=== PATIENT | female | born 1930 | race Caucasian/White ===

== ENCOUNTER 2018-03-04 15:41 | Inpatient (IN) | payer OTHER, MEDICARE ==
--- NOTE | 2018-03-04 15:54 | PDOC ---
Rapid Medical Evaluation Medical Evaluation: 03/04/18 15:52 I have performed a brief in-person evaluation of this patient. The patient presents with a chief complaint of: weakness, dizzines, "hasn't been herself in past couple of days" per daughter, sent in by PCP Neisha for lab variances and dehydration Pertinent physical exam findings: bradycardic to 50s I have ordered the following: ekg, cardiac workup The patient will proceed to the ED for further evaluation. Discharge Disposition - Diagnosis Abnormal laboratory test - Referrals - Patient Instructions - Post Discharge Activity
[2018-03-04] MEDS ORDERED: ASPIRIN 81 MG CHEWABLE TABLETS PO ONE (15:55)
[2018-03-04] MEDS ORDERED: SODIUM CHLORIDE 0.9% 500 ML INFUS.BAG IV ONE (15:56)
[2018-03-04 16:24] LABS: BASO % 0.5 % (0-2.0); EOS % 2.4 % (0-4.5); HEMATOCRIT 40.4 % (32.4-45.2); HEMOGLOBIN 13.8 GM/dL (10.7-15.3); LYMPH % 20.5 % (8-40); MCH 30.7 pg (25.7-33.7); MCHC 34.1 g/dl (32.0-36.0); MEAN CELL VOLUME 89.9 fl (80-96); MEAN PLT VOLUME 10.4 fl (7.5-11.1); MONO % 6.2 % (3.8-10.2); NEUT % 70.4 % (42.8-82.8); PLATELET COUNT 266 K/MM3 (134-434); RDW 14.8 % (11.6-15.6); WHITE BLOOD COUNT 12.7 K/mm3 (4.0-10.0)
[2018-03-04] MEDS ORDERED: ASPIRIN 81 MG CHEWABLE TABLETS ONE (16:39)
[2018-03-04 16:42] LABS: INR 0.94 (0.82-1.09); PROTHROMBIN TIME (PATIENT) 10.6 SEC (9.98-11.88)
--- NOTE | 2018-03-04 17:40 | PDOC ---
History of Present Illness - General History Source: Patient Exam Limitations: No Limitations - History of Present Illness Initial Comments: 03/04/18 17:53 The patient is a 87 year old female with history of HL, HTN, depression, CAD, dementia, hypothyroidism sent to the ED by her PCP for concern for dehydration and abnormal lab values obtained yesterday. Per the patient's daughter at bedside, the patient has been "not herself" for several days and seemingly less energetic than usual. The patient reports she has been feeling lightheadedness. She denies chest pain or shortness of breath. She denies nausea, vomiting, or diaphoresis. She denies fever or chills. She denies headache, blurred vision, or numbness or tingling. She denies urinary complaints. Denies history of recurrent UTI's. PCP: Dr. Bess Driver <Jinny Gastelum - Last Filed: 03/04/18 18:36> <Ronni Mercedes - Last Filed: 03/04/18 20:18> - General Chief Complaint: Weakness Stated Complaint: LAB VARIANCE (PCP SENT) Time Seen by Provider: 03/04/18 16:26 Past History <Jinny Gastelum - Last Filed: 03/04/18 18:36> - Past Medical History Anemia: No Asthma: No Cardiac Disorders: No CVA: No COPD: No Diabetes: No HTN: Yes Hypercholesterolemia: Yes Kidney Stones: No Liver Disease: No Psychiatric Problems: No Seizures: No Thyroid Disease: No Lung CA: No - Immunization History Immunization Up to Date: Yes - Suicide/Smoking/Psychosocial Hx Smoking History: Never smoked Have you smoked in the past 12 months: No Information on smoking cessation initiated: No Hx Alcohol Use: No Drug/Substance Use Hx: No Substance Use Type: None <Ronni Mercedes - Last Filed: 03/04/18 20:18> - Past Medical History Allergies/Adverse Reactions: Allergies Allergy/AdvReac Type Severity Reaction Status Date / Time No Known Allergies Allergy Verified 03/04/18 15:58 Home Medications: Ambulatory Orders Unobtainable [Unobtainable] 03/04/18 Review of Systems - Review of Systems Able to Perform ROS?: Yes Comments:: 03/04/18 18:37 GENERAL/CONSTITUTIONAL: +Weakness. No fever or chills. HEAD, EYES, EARS, NOSE AND THROAT: No change in vision. No ear pain or discharge. No sore throat. GASTROINTESTINAL: No nausea, vomiting, diarrhea or constipation. GENITOURINARY: No dysuria, frequency, or change in urination. CARDIOVASCULAR: +lightheadedness. No chest pain or shortness of breath. RESPIRATORY: No cough, wheezing, or hemoptysis. MUSCULOSKELETAL: No joint or muscle swelling or pain. No neck or back pain. SKIN: No rash NEUROLOGIC: No headache, loss of consciousness, or change in strength/sensation. ENDOCRINE: No increased thirst. No abnormal weight change. HEMATOLOGIC/LYMPHATIC: No anemia, easy bleeding, or history of blood clots. ALLERGIC/IMMUNOLOGIC: No hives or skin allergy. <Jinny Gastelum - Last Filed: 03/04/18 18:36> *Physical Exam - Vital Signs Last Vital Signs Temp Pulse Resp BP Pulse Ox 98.2 F 49 L 16 150/89 100 03/04/18 15:54 03/04/18 15:54 03/04/18 15:54 03/04/18 15:54 03/04/18 15:54 - Physical Exam Comments: 03/04/18 18:37 GENERAL: Awake, alert, and fully oriented, in no acute distress HEAD: No signs of trauma EYES: PERRLA, EOMI, sclera anicteric, conjunctiva clear ENT: Auricles normal inspection, hearing grossly normal, nares patent, oropharynx clear without exudates. Moist mucosa NECK: Normal ROM, supple, no lymphadenopathy, JVD, or masses LUNGS: Breath sounds equal, clear to auscultation bilaterally. No wheezes, and no crackles HEART: Regular rate and rhythm, normal S1 and S2, no murmurs, rubs or gallops ABDOMEN: Soft, nontender, normoactive bowel sounds. No guarding, no rebound. No masses EXTREMITIES: Normal range of motion, no edema. No clubbing or cyanosis. No cords, erythema, or tenderness BACK: No midline spinal tenderness in cervical/thoracic/lumbar region NEUROLOGICAL: Normal speech, cranial nerves intact, negative pronator drift, 5/ 5 strength in all 4 extremities, normal sensation to light touch in all 4 extremities, normal cerebellar exam, normal reflexes and tone. Gait deferred. SKIN: Warm, Dry, normal turgor, no rashes or lesions noted. <Jinny Gastelum - Last Filed: 03/04/18 18:36> - Vital Signs Last Vital Signs Temp Pulse Resp BP Pulse Ox 98.2 F 49 L 16 150/89 100 03/04/18 15:54 03/04/18 15:54 03/04/18 15:54 03/04/18 15:54 03/04/18 15:54 <Ronni Mercedes - Last Filed: 03/04/18 20:18> ED Treatment Course - LABORATORY CBC & Chemistry Diagram: 03/04/18 16:05 03/04/18 16:05 - ADDITIONAL ORDERS Additional order review: Laboratory Results 03/04/18 03/04/18 16:05 16:05 PT with INR 10.60 INR 0.94 Sodium Cancelled Potassium Cancelled Chloride Cancelled Carbon Dioxide Cancelled Anion Gap Cancelled BUN Cancelled Creatinine Cancelled Creat Clearance w eGFR Cancelled Random Glucose Cancelled Calcium Cancelled Magnesium Cancelled Total Bilirubin Cancelled AST Cancelled ALT Cancelled Alkaline Phosphatase Cancelled Creatine Kinase Cancelled Troponin I Cancelled Total Protein Cancelled Albumin Cancelled 03/04/18 16:05 RBC 4.50 MCV 89.9 MCHC 34.1 RDW 14.8 MPV 10.4 Neutrophils % 70.4 Lymphocytes % 20.5 Monocytes % 6.2 Eosinophils % 2.4 Basophils % 0.5 - Medications Given in the ED: ED Medications Discontinued Medications Generic Name Dose Route Start Last Admin Trade Name Freq PRN Reason Stop Dose Admin Aspirin 162 mg 03/04/18 15:55 03/04/18 16:44 Asa - PO 03/04/18 15:56 162 mg ONCE ONE Administration Sodium Chloride 1,000 ml 03/04/18 15:56 03/04/18 16:44 Normal Saline - IV 03/04/18 15:57 1,000 ml ONCE ONE Administration <Jinny Gastelum - Last Filed: 03/04/18 18:36> - LABORATORY CBC & Chemistry Diagram: 03/04/18 16:05 03/04/18 18:10 - ADDITIONAL ORDERS Additional order review: Laboratory Results 03/04/18 16:05 PT with INR 10.60 INR 0.94 03/04/18 16:05 RBC 4.50 MCV 89.9 MCHC 34.1 RDW 14.8 MPV 10.4 Neutrophils % 70.4 Lymphocytes % 20.5 Monocytes % 6.2 Eosinophils % 2.4 Basophils % 0.5 - RADIOLOGY Radiology Studies Ordered: Category Date Time Status HEAD CT WITHOUT CONTRAST [CT] Stat CT Scan 03/04/18 17:34 Ordered - Medications Given in the ED: ED Medications Discontinued Medications Generic Name Dose Route Start Last Admin Trade Name Fredi PRN Reason Stop Dose Admin Aspirin 162 mg 03/04/18 15:55 03/04/18 16:44 Asa - PO 03/04/18 15:56 162 mg ONCE ONE Administration Sodium Chloride 1,000 ml 03/04/18 15:56 03/04/18 16:44 Normal Saline - IV 03/04/18 15:57 1,000 ml ONCE ONE Administration <Ronni Mercedes - Last Filed: 03/04/18 20:18> Medical Decision Making - Medical Decision Making 03/04/18 17:38 87-year-old female with multiple medical problems presents emergency Department with generalized weakness, lightheadedness, and confusion. Vitals remarkable for bradycardia to the upper 40s and low 50s, but with normal blood pressure. Exam is unremarkable. Differential includes but not limited to dehydration versus symptomatic bradycardia/SSS (pt NOT on BB) metabolic disarray versus cardiac ischemia. WIll order labs, CXR, UA. Given lightheadness and change in mental status, will also order CTH. Likely obs admit 03/04/18 18:[address] Driver who was concerned about pt's mental status as she normally takes care of herself, gets dressed etc and she hadn't changed her clothes since she was last seen [address] Driver also notes pt was newly bradycardic today and was concerned this may be the cause of her change in mental status. Dr. Driver would like her admitted and has alerted Dr. Michelle (cards) and Dr. Wise for admission. Remainder of labs pending (CMP hemolyzed). 03/04/18 19:07 Pt signed out to Dr. Lopez for further f/u on diagnostics and admission. <Ronni Mercedes - Last Filed: 03/04/18 20:18> *DC/Admit/Observation/Transfer - Attestations Scribe Attestion: 03/04/18 18:37 Documentation prepared by Jinny Gastelum, acting as medical cost consultant for Ronni Mercedes MD. <Jinny Gastelum - Last Filed: 03/04/18 18:36> <Ronni Mercedes - Last Filed: 03/04/18 20:18> Diagnosis at time of Disposition: Abnormal laboratory test - Referrals Referrals: Bess Driver [Primary Care Provider] - - Patient Instructions - Post Discharge Activity
[2018-03-04 19:34] LABS: ALBUMIN 3.5 g/dl (3.4-5.0); ALK PHOS 68 U/L (45-117); ANION GAP 5 (8-16); BILIRUBIN,TOTAL 0.3 mg/dL (0.2-1.0); BLOOD UREA NITROGEN 24 mg/dL (7-18); CALCIUM 9.2 mg/dL (8.5-10.1); CHLORIDE 103 mmol/L (98-107); CO2 29 mmol/L (21-32); GLUCOSE,RANDOM 116 mg/dL (74-106); SGPT/ALT 32 U/L (12-78); SODIUM 137 mmol/L (136-145); TOT PROT 7.2 g/dl (6.4-8.2)
[2018-03-04 19:45] LABS: SGOT/AST 23 U/L (15-37)
[2018-03-04 20:14] LABS: MAGNESIUM 2.2 mg/dL (1.8-2.4)
--- NOTE | 2018-03-04 20:45 | PDOC ---
*Physical Exam - Vital Signs Last Vital Signs Temp Pulse Resp BP Pulse Ox 98.2 F 49 L 16 150/89 100 03/04/18 15:54 03/04/18 15:54 03/04/18 15:54 03/04/18 15:54 03/04/18 15:54 ED Treatment Course - LABORATORY CBC & Chemistry Diagram: 03/04/18 16:05 03/04/18 18:10 - ADDITIONAL ORDERS Additional order review: Laboratory Results 03/04/18 03/04/18 03/04/18 18:28 18:10 18:10 PT with INR INR Sodium 137 Potassium 5.0 Chloride 103 Carbon Dioxide 29 Anion Gap 5 L BUN 24 H Creatinine 1.0 Creat Clearance w eGFR 52.45 Random Glucose 116 H Calcium 9.2 Magnesium 2.2 Total Bilirubin 0.3 AST 23 ALT 32 Alkaline Phosphatase 68 Creatine Kinase Troponin I < 0.02 Total Protein 7.2 Albumin 3.5 TSH 5.08 H 03/04/18 03/04/18 16:05 16:05 PT with INR 10.60 INR 0.94 Sodium Cancelled Potassium Cancelled Chloride Cancelled Carbon Dioxide Cancelled Anion Gap Cancelled BUN Cancelled Creatinine Cancelled Creat Clearance w eGFR Cancelled Random Glucose Cancelled Calcium Cancelled Magnesium Cancelled Total Bilirubin Cancelled AST Cancelled ALT Cancelled Alkaline Phosphatase Cancelled Creatine Kinase Cancelled Troponin I Cancelled Total Protein Cancelled Albumin Cancelled TSH 03/04/18 16:05 RBC 4.50 MCV 89.9 MCHC 34.1 RDW 14.8 MPV 10.4 Neutrophils % 70.4 Lymphocytes % 20.5 Monocytes % 6.2 Eosinophils % 2.4 Basophils % 0.5 - Medications Given in the ED: ED Medications Discontinued Medications Generic Name Dose Route Start Last Admin Trade Name Freq PRN Reason Stop Dose Admin Aspirin 162 mg 03/04/18 15:55 03/04/18 16:44 Asa - PO 03/04/18 15:56 162 mg ONCE ONE Administration Sodium Chloride 1,000 ml 03/04/18 15:56 03/04/18 16:44 Normal Saline - IV 03/04/18 15:57 1,000 ml ONCE ONE Administration *DC/Admit/Observation/Transfer Diagnosis at time of Disposition: Abnormal laboratory test, Bradycardia - Discharge Dispostion Condition at time of disposition: Stable Admit: Yes - Referrals Referrals: Bess Driver [Primary Care Provider] - - Patient Instructions - Post Discharge Activity
--- NOTE | 2018-03-04 23:26 | HP ---
Admitting History and Physical - Admission History of Present Illness: The patient is a 87 year old female with history of HL, HTN, depression, CAD, dementia, hypothyroidism sent to the ED by her PCP for concern for dehydration, altered behavior ( has not changed her attire in 2 days-she usually cares for herself) and abnormal lab values obtained yesterday. Per the patient's daughter at bedside, the patient has been "not herself" for several days and seemingly less energetic than usual. The patient reports she has been feeling lightheadedness. She denies chest pain or shortness of breath. She denies nausea , vomiting, or diaphoresis. She denies fever or chills. She denies headache, blurred vision, or numbness or tingling. She denies urinary complaints. Denies history of recurrent UTI's. History Source: Patient, Medical Record, Caregiver Limitations to Obtaining History: Dementia - Past Medical History LITIGATION PARALEGAL: Yes: Dementia (moderate) Cardiovascular: Yes: HTN, Hyperlipdemia Musculoskeletal: Yes: Osteoarthritis - Smoking History Smoking history: Never smoked Have you smoked in the past 12 months: No - Alcohol/Substance Use Hx Alcohol Use: No History of Substance Use: reports: None - Social History Usual Living Arrangement: Yes: Assisted Living ADL: Support Services History of Recent Travel: No Home Medications - Allergies Allergies/Adverse Reactions: Allergies Allergy/AdvReac Type Severity Reaction Status Date / Time No Known Allergies Allergy Verified 03/04/18 15:58 - Home Medications Home Medications: Ambulatory Orders Acetaminophen [Tylenol .Extra-Strength -] 500 mg PO BID 03/04/18 Aspirin 81 mg PO DAILY 03/04/18 Atorvastatin Ca [Lipitor] 10 mg PO HS 03/04/18 Calcium Carb, Citrate/Vit D3 [Citracal + D ER Tablet] 2 each PO DAILY 03/04/18 Cholecalciferol (Vitamin D3) [Vitamin D3] 2,000 unit PO DAILY 03/04/18 Levothyroxine [Synthroid -] 100 mcg PO DAILY 03/04/18 Losartan Potassium [Cozaar] 100 mg PO DAILY 03/04/18 Memantine HCl [Namenda -] 10 mg PO BID 03/04/18 Multivitamin [Multiple Vitamins] 1 each PO DAILY 03/04/18 Paroxetine HCl [Paxil] 10 mg PO DAILY 03/04/18 Vit C/E/Zn/Coppr/Lutein/Zeaxan [Preservision Areds 2 Softgel] 1 each PO DAILY Docusate Sodium [Colace -] 100 mg PO BID capsule 03/05/18 Physical Examination Vital Signs: Vital Signs Temperature 98.2 F 03/04/18 15:54 Pulse Rate 54 L 03/04/18 21:52 Respiratory Rate 18 03/04/18 21:52 Blood Pressure 140/77 03/04/18 21:52 O2 Sat by Pulse Oximetry (%) 100 03/04/18 21:52 Constitutional: Yes: Well Nourished, No Distress, Calm Eyes: Yes: Conjunctiva Clear, EOM Intact HENT: Yes: Atraumatic, Normocephalic Neck: Yes: Supple, Trachea Midline Cardiovascular: Yes: Regular Rate and Rhythm, Bradycardia Respiratory: Yes: CTA Bilaterally Gastrointestinal: Yes: Normal Bowel Sounds, Soft ...Rectal Exam: Yes: Deferred Renal/: Yes: WNL Breast(s): Yes: WNL Musculoskeletal: Yes: WNL Extremities: Yes: WNL Edema: No Peripheral Pulses WNL: Yes Integumentary: Yes: WNL Neurological: Yes: WNL, Pre-Existing Deficit Psychiatric: Yes: Alert Labs: CBC, BMP 03/04/18 16:05 03/04/18 18:10 Problem List - Problems (1) HLD (hyperlipidemia) Code(s): E78.5 - HYPERLIPIDEMIA, UNSPECIFIED (2) HTN (hypertension) Code(s): I10 - ESSENTIAL (PRIMARY) HYPERTENSION (3) Alteration of behavior in patient older than 64 years of age Code(s): F91.8 - OTHER CONDUCT DISORDERS (4) Abnormal laboratory test Code(s): R89.9 - UNSP ABNORMAL FINDING IN SPECIMENS FROM OTH ORG/TISS (5) Bradycardia Code(s): R00.1 - BRADYCARDIA, UNSPECIFIED (6) Hypothyroid Code(s): E03.9 - HYPOTHYROIDISM, UNSPECIFIED Assessment/Plan EKG: sr 50s, 1st avb, nl qtc, no ishcemic changes CXR: no chf a/p: 87 f hx hld, htn, dementia, hypothyroid here with ams. bradycardia: -telemetry -Cardio consult -echo, HLD: -cont statin HTN: -cont arb hypothyroid: -cont synthroid
[2018-03-04 23:33] LABS: URINE APPEARANCE CLEAR; URINE BILIRUBIN NEGATIVE (<2.0 mg/dL); URINE COLOR LTYELLOW; URINE GLUCOSE (UA) NEGATIVE (NEGATIVE); URINE KETONE NEGATIVE (NEGATIVE); URINE LEUK ESTERASE NEGATIVE (NEGATIVE); URINE NITRITE NEGATIVE (NEGATIVE); URINE PROTEIN NEGATIVE (NEGATIVE); URINE UROBILINOGEN NEGATIVE mg/dL (0.2-1.0)
[2018-03-05 00:04] VITALS: BMI 39.4
[2018-03-05 06:39] LABS: HEMATOCRIT 38.1 % (32.4-45.2); HEMOGLOBIN 12.9 GM/dL (10.7-15.3); MCH 30.6 pg (25.7-33.7); MCHC 33.8 g/dl (32.0-36.0); MEAN CELL VOLUME 90.7 fl (80-96); MEAN PLT VOLUME 10.4 fl (7.5-11.1); PLATELET COUNT 216 K/MM3 (134-434); WHITE BLOOD COUNT 12.8 K/mm3 (4.0-10.0)
[2018-03-05] MEDS ORDERED: LEVOTHYROXINE NA 100 MCG TABLET (FP) PO SCH (07:00)
[2018-03-05 07:32] LABS: ANION GAP 8 (8-16); BILIRUBIN,TOTAL 0.6 mg/dL (0.2-1.0); BLOOD UREA NITROGEN 21 mg/dL (7-18); CALCIUM 8.5 mg/dL (8.5-10.1); CHLORIDE 106 mmol/L (98-107); CO2 26 mmol/L (21-32); GLUCOSE,RANDOM 123 mg/dL (74-106); MAGNESIUM 2.1 mg/dL (1.8-2.4); POTASSIUM 4.5 mmol/L (3.5-5.1); SGOT/AST 16 U/L (15-37); SGPT/ALT 27 U/L (12-78); SODIUM 140 mmol/L (136-145); TOT PROT 6.2 g/dl (6.4-8.2)
[2018-03-05 07:36] LABS: ALK PHOS 58 U/L (45-117)
--- NOTE | 2018-03-05 09:37 | EKG ---
Test Reason : Blood Pressure : / mmHG Vent. Rate : 058 BPM Atrial Rate : 058 BPM P-R Int : 236 ms QRS Dur : 086 ms QT Int : 440 ms P-R-T Axes : 045 -12 061 degrees QTc Int : 431 ms SINUS BRADYCARDIA WITH 1ST DEGREE A-V BLOCK OTHERWISE NORMAL ECG WHEN COMPARED WITH ECG OF 04-MAR-2018 16:12, CRITERIA FOR SEPTAL INFARCT ARE NO LONGER PRESENT Confirmed by LAKESHA BURNS, MUKESH ([id number]) on 03/05/2018 9:37:24 AM Referred By: BEV JARAMILLO DR Confirmed By:MUKESH CROWDER MD
--- NOTE | 2018-03-05 09:37 | EKG ---
Test Reason : Blood Pressure : / mmHG Vent. Rate : 051 BPM Atrial Rate : 051 BPM P-R Int : 232 ms QRS Dur : 088 ms QT Int : 440 ms P-R-T Axes : 062 -18 047 degrees QTc Int : 405 ms POOR DATA QUALITY, INTERPRETATION MAY BE ADVERSELY AFFECTED SINUS BRADYCARDIA WITH 1ST DEGREE A-V BLOCK MINIMAL VOLTAGE CRITERIA FOR LVH, MAY BE NORMAL VARIANT SEPTAL INFARCT , AGE UNDETERMINED ABNORMAL ECG NO PREVIOUS ECGS AVAILABLE Confirmed by MUKESH CROWDER MD ([id number]) on 03/05/2018 9:37:05 AM Referred By: Confirmed By:MUKESH CROWDER MD
[2018-03-05] MEDS ORDERED: LOSARTAN POTASSIUM 50 MG TABLET (FP) PO SCH (10:00)
[2018-03-05] MEDS ORDERED: MULTIVITAMINS (DAILY MVI) TABLET (FP) PO SCH (10:00)
[2018-03-05] MEDS ORDERED: MEMANTINE HCL 10 MG TABLET (FP) PO SCH (10:00)
[2018-03-05] MEDS ORDERED: ACETAMINOPHEN 500 MG TABLET (FP) PO SCH (10:00)
[2018-03-05] MEDS ORDERED: CALCIUM (OYSTER SHELL) 500 MG TABLET (FP) PO SCH (10:00)
[2018-03-05] MEDS ORDERED: PARoxetine HCL 10 MG TABLET (FP) PO SCH (10:00)
[2018-03-05] MEDS ORDERED: DOCUSATE SODIUM 100 MG CAPSULE (FP) PO SCH (10:00)
[2018-03-05] MEDS ORDERED: CHOLECALCIFEROL (VITAMIN D3) 1,000 UNIT TABLET (FP) PO SCH (10:00)
--- NOTE | 2018-03-05 10:37 | CON.CARD ---
Cardiology Consult (text) - Consultation Consultation Note: cc: ams hpi: 87 f hx hld, htn, dementia, hypothyroid here with ams. Pt does not recall any specific sxs, says she is feeling well. No cp, sob, palps, dizzy, loc, pnd, orthopnea, le edema. In ER found to have SB 40s, nl bp. pmh: per hpi psh: nc social: no tob fam: no premature cad ros: per hpi; no nvd, fever, cough, albright, vision changes, hematuria, dysuria, gib meds: Home Medications Medication Instructions Recorded Acetaminophen [Tylenol -] 500 mg PO BID 03/04/18 Aspirin 81 mg PO DAILY 03/04/18 Atorvastatin Ca [Lipitor] 10 mg PO HS 03/04/18 Calcium Carb, Citrate/Vit D3 2 each PO DAILY 03/04/18 [Citracal + D ER Tablet] Cholecalciferol (Vitamin D3) 2,000 unit PO DAILY 03/04/18 [Vitamin D3] Levothyroxine [Synthroid -] 100 mcg PO DAILY 03/04/18 Losartan Potassium [Cozaar] 100 mg PO DAILY 03/04/18 Memantine HCl [Namenda -] 10 mg PO BID 03/04/18 Multivitamin [Multiple Vitamins] 1 each PO DAILY 03/04/18 Paroxetine HCl [Paxil] 10 mg PO DAILY 03/04/18 Vit C/E/Zn/Coppr/Lutein/Zeaxan 1 each PO DAILY 03/04/18 [Preservision Areds 2 Softgel] pe: Vital Signs Period Temp Pulse Resp BP Sys/[place] Pulse Ox Last 24 Hr 97.6 F-98.2 F 48-54 16-18 126-150/43-89 96-100 nad no jvd rrr s1s2 no mrg cta bl nl eff aao3 no le e/c/c abd nt nd pos bs no jaundice diaphoresis pos dp pt no carotid bruits Laboratory Last Values WBC 12.8 K/mm3 (4.0-10.0) H 03/05/18 05:35 RBC 4.20 M/mm3 (3.60-5.2) 03/05/18 05:35 Hgb 12.9 GM/dL (10.7-15.3) 03/05/18 05:35 Hct 38.1 % (32.4-45.2) 03/05/18 05:35 MCV 90.7 fl (80-96) 03/05/18 05:35 MCH 30.6 pg (25.7-33.7) 03/05/18 05:35 MCHC 33.8 g/dl (32.0-36.0) 03/05/18 05:35 RDW 15.0 % (11.6-15.6) 03/05/18 05:35 Plt Count 216 K/MM3 (134-434) 03/05/18 05:35 MPV 10.4 fl (7.5-11.1) 03/05/18 05:35 Neutrophils % 70.4 % (42.8-82.8) 03/04/18 16:05 Lymphocytes % 20.5 % (8-40) 03/04/18 16:05 Monocytes % 6.2 % (3.8-10.2) 03/04/18 16:05 Eosinophils % 2.4 % (0-4.5) 03/04/18 16:05 Basophils % 0.5 % (0-2.0) 03/04/18 16:05 PT with INR 10.60 SEC (9.98-11.88) 03/04/18 16:05 INR 0.94 (0.82-1.09) 03/04/18 16:05 Sodium 140 mmol/L (136-145) 03/05/18 05:35 Potassium 4.5 mmol/L (3.5-5.1) 03/05/18 05:35 Chloride 106 mmol/L (98-107) 03/05/18 05:35 Carbon Dioxide 26 mmol/L (21-32) 03/05/18 05:35 Anion Gap 8 (8-16) 03/05/18 05:35 BUN 21 mg/dL (7-18) H 03/05/18 05:35 Creatinine 1.0 mg/dL (0.55-1.02) 03/05/18 05:35 Creat Clearance w eGFR 52.45 (>60) 03/05/18 05:35 Random Glucose 123 mg/dL (74-106) H 03/05/18 05:35 Calcium 8.5 mg/dL (8.5-10.1) 03/05/18 05:35 Magnesium 2.1 mg/dL (1.8-2.4) 03/05/18 05:35 Total Bilirubin 0.6 mg/dL (0.2-1.0) D 03/05/18 05:35 AST 16 U/L (15-37) 03/05/18 05:35 ALT 27 U/L (12-78) 03/05/18 05:35 Alkaline Phosphatase 58 U/L (45-117) 03/05/18 05:35 Creatine Kinase 42 IU/L (26-192) 03/05/18 05:35 Troponin I < 0.02 ng/ml (0.00-0.05) 03/05/18 05:35 Total Protein 6.2 g/dl (6.4-8.2) L 03/05/18 05:35 Albumin 3.0 g/dl (3.4-5.0) L 03/05/18 05:35 TSH 5.08 uIU/ml (0.358-3.74) H 03/04/18 18:10 Urine Color Ltyellow 03/04/18 23:20 Urine Appearance Clear 03/04/18 23:20 Urine pH 5.0 (5.0-8.0) 03/04/18 23:20 Ur Specific [place] 1.017 (1.001-1.035) 03/04/18 23:20 Urine Protein Negative (NEGATIVE) 03/04/18 23:20 Urine Glucose (UA) Negative (NEGATIVE) 03/04/18 23:20 Urine Ketones Negative (NEGATIVE) 03/04/18 23:20 Urine Blood Negative (NEGATIVE) 03/04/18 23:20 Urine Nitrite Negative (NEGATIVE) 03/04/18 23:20 Urine Bilirubin Negative (<2.0 mg/dL) 03/04/18 23:20 Urine Urobilinogen Negative mg/dL (0.2-1.0) 03/04/18 23:20 Ur Leukocyte Esterase Negative (NEGATIVE) 03/04/18 23:20 tele: sb 40s when sleeping, 80s currently awake, no pathologic bradycardia ecg: sr 50s, 1st avb, nl qtc, no ishcemic changes cxr: no chf a/p: 87 f hx hld, htn, dementia, hypothyroid here with ams. bradycardia: -no pathologic bradycardia detected here -pt with sinus summer at rest/sleep, goes up to 80s when awake in chair -check echo, otherwise no specific tx needed for her sinus summer hld: -cont statin htn: -cont arb hypothyroid: -cont synthroid
[2018-03-05 14:33] VITALS: BP 137/63; PULSE 65; TEMP 97.9
--- NOTE | 2018-03-05 15:16 | PN ---
Progress Note (short form) - Note Progress Note: PT found walking from bathroom. Nurse assisting. Pt states I feel fine and would like to go home today. Vital Signs Period Temp Pulse Resp BP Sys/[place] Pulse Ox Last 24 Hr 97.6 F-98.2 F 48-65 16-18 126-153/43-89 94-100 CBC, BMP 03/05/18 05:35 03/05/18 05:35 HEENT-Normocephalic Neck-supple Lungs- CTAB Heart- S1/S2 Abd- Soft, NT Ext- No LE edema Active Medications Acetaminophen (Tylenol -) 500 mg PO BID [facility] Last Admin: 03/05/18 09:23 Dose: 500 mg Atorvastatin Calcium (Lipitor -) 10 mg PO HS [facility] Calcium Carbonate (Os-Harry 500mg -) 500 mg PO DAILY [facility] Last Admin: 03/05/18 09:24 Dose: 500 mg Cholecalciferol (Vitamin D3 -) 2,000 unit PO DAILY [facility] Last Admin: 03/05/18 09:23 Dose: 2,000 unit Docusate Sodium (Colace -) 100 mg PO BID [facility] Last Admin: 03/05/18 09:23 Dose: 100 mg Levothyroxine Sodium (Synthroid -) 100 mcg PO DAILY@0700 [facility] Last Admin: 03/05/18 06:20 Dose: 100 mcg Lorazepam (Ativan Injection -) 0.5 mg IVPUSH BID PRN PRN Reason: Agitation /anxiety Losartan Potassium (Cozaar -) 100 mg PO DAILY [facility] Last Admin: 03/05/18 09:23 Dose: 100 mg Memantine (Namenda -) 10 mg PO BID [facility] Last Admin: 03/05/18 09:23 Dose: 10 mg Multivitamins/Minerals/Vitamin C (Tab-A-Vit -) 1 tab PO DAILY [facility] Last Admin: 03/05/18 09:23 Dose: 1 tab Paroxetine HCl (Paxil -) 10 mg PO DAILY [facility] Last Admin: 03/05/18 09:24 Dose: 10 mg # Bradycardia Cardio consult appreciated 40s-50s at rest HR increases after activity Discussed findings with dtr / PCP/ Attending #Dementia Continue Namenda A & O x 1 #Hypothyroidism TSH elevated Continue Levothyroxine #HTN Continue ARB #HLD Continue Statin
--- NOTE | 2018-03-05 18:26 | DS ---
Physical Examination Vital Signs: Vital Signs Temperature 97.9 F 03/05/18 14:32 Pulse Rate 65 03/05/18 14:32 Respiratory Rate 16 03/05/18 14:32 Blood Pressure 137/63 03/05/18 14:32 O2 Sat by Pulse Oximetry (%) 94 L 03/05/18 09:00 Findings/Remarks: The patient is a 87 year old female with history of HL, HTN, depression, CAD, dementia, hypothyroidism sent to the ED by her PCP for concern for dehydration and abnormal lab values obtained yesterday. Per the patient's daughter at bedside, the patient has been "not herself" for several days and seemingly less energetic than usual. The patient reports she has been feeling lightheadedness. She denies chest pain or shortness of breath. She denies nausea, vomiting, or diaphoresis. She denies fever or chills. She denies headache, blurred vision, or numbness or tingling. She denies urinary complaints. Denies history of recurrent UTI's. tele: sb 40s when sleeping, 80s currently awake, no pathologic bradycardia ecg: sr 50s, 1st avb, nl qtc, no ishcemic changes cxr: no chf a/p: 87 f hx hld, htn, dementia, hypothyroid here with ams. bradycardia: -no pathologic bradycardia detected here -pt with sinus summer at rest/sleep, goes up to 80s when awake in chair -check echo, otherwise no specific tx needed for her sinus summer hld: -cont statin htn: -cont arb hypothyroid: -cont synthroid Constitutional: Yes: No Distress, Calm Eyes: Yes: Conjunctiva Clear, EOM Intact HENT: Yes: Atraumatic, Normocephalic Neck: Yes: Supple, Trachea Midline Cardiovascular: Yes: Regular Rate and Rhythm Respiratory: Yes: Regular, CTA Bilaterally Gastrointestinal: Yes: Normal Bowel Sounds, Soft ...Rectal Exam: Yes: Deferred Renal/: Yes: WNL Breast(s): Yes: WNL Musculoskeletal: Yes: WNL Extremities: Yes: WNL Edema: No Peripheral Pulses WNL: Yes Integumentary: Yes: WNL Neurological: Yes: WNL, Pre-Existing Deficit Psychiatric: Yes: Other (dementia) Labs: CBC, BMP 03/05/18 05:35 03/05/18 05:35 Discharge Summary Reason For Visit: LAB VARIANCE (PCP SENT) Current Active Problems Abnormal laboratory test (Acute) Bradycardia (Acute) Condition: Stable - Instructions Referrals: Bess Driver [Primary Care Provider] - Disposition: HOME - Home Medications Comprehensive Discharge Medication List: Ambulatory Orders Acetaminophen [Tylenol .Extra-Strength -] 500 mg PO BID 03/04/18 Aspirin 81 mg PO DAILY 03/04/18 Atorvastatin Ca [Lipitor] 10 mg PO HS 03/04/18 Calcium Carb, Citrate/Vit D3 [Citracal + D ER Tablet] 2 each PO DAILY 03/04/18 Cholecalciferol (Vitamin D3) [Vitamin D3] 2,000 unit PO DAILY 03/04/18 Levothyroxine [Synthroid -] 100 mcg PO DAILY 03/04/18 Losartan Potassium [Cozaar] 100 mg PO DAILY 03/04/18 Memantine HCl [Namenda -] 10 mg PO BID 03/04/18 Multivitamin [Multiple Vitamins] 1 each PO DAILY 03/04/18 Paroxetine HCl [Paxil] 10 mg PO DAILY 03/04/18 Vit C/E/Zn/Coppr/Lutein/Zeaxan [Preservision Areds 2 Softgel] 1 each PO DAILY Docusate Sodium [Colace -] 100 mg PO BID capsule 03/05/18
[2018-03-05] MEDS ORDERED: ATORVASTATIN CA 10 MG TABLET (FP) PO SCH (22:00)
== END 2018-03-05 18:37 | disposition home or self-care (01) | DRG 310 ==
LOC: JER 15:41 → JERBED 21:09 → J4S 22:42
PROVIDERS: ADMIT Family Medicine; ATTEND Family Medicine
DX: R00.1 Bradycardia, unspecified (principal); R41.82 Altered mental status, unspecified; E86.0 Dehydration; I10 Essential (primary) hypertension; E03.9 Hypothyroidism, unspecified; I25.10 Atherosclerotic heart disease of native coronary artery without angina pectoris; F03.90 Unspecified dementia, unspecified severity, without behavioral disturbance, psychotic disturbance, mood disturbance, and anxiety; I44.0 Atrioventricular block, first degree
CPT/HCPCS: 36415; 70450-TC; 71045-TC-FY; 80053; 81003; 82550; 83735; 84443; 84484; 85025; 85027; 85610; 87086; 93005; 93010; 93306-TC; 97116-GP; 97161-GP; 99285-25